=== PATIENT | male | born 1965 | race Caucasian/White ===

== ENCOUNTER 2019-04-21 21:57 | Inpatient (IN) ==
[2019-04-21] MEDS ORDERED: DUONEB (A & A) INH ONE (22:41)
--- NOTE | 2019-04-21 22:44 | EKG Report ---
Test Performed on : 04/21/2019 10:38:17 PM Test Reason : sob Blood Pressure : / mmHG Vent. Rate : 096 BPM Atrial Rate : 096 BPM P-R Int : 158 ms QRS Dur : 088 ms QT Int : 364 ms P-R-T Axes : 075 055 063 degrees QTc Int : 459 ms Normal sinus rhythm. Normal ECG When compared with ECG of 06-APR-2019 03:48, (Unconfirmed) No significant change was found Unconfirmed Result
[2019-04-21] MEDS ORDERED: NS 1,000 ML IV ONE ×2 (22:48→23:53)
[2019-04-21 23:03] LABS: BASO# 0.01 X1000 (0.0-0.2); BASO% 0.1 % (0.0-0.8); EOS# 0.01 X1000 (0.0-0.7); EOS% 0.1 % (0.0-10.0); HEMATOCRIT 58.1 % (42.0-52.0); HEMOGLOBIN 16.7 g/dL (14.0-18.0); IMM GRAN# 0.01 X1000 (0.0-0.04); IMM GRAN% 0.1 % (0.0-0.5); LYMPH# 0.66 X1000 (1.2-3.4); LYMPH% 9.2 % (20.5-51.1); MCH 28.5 PG (27-31); MCHC 28.7 g/dL (33-37); MCV 99.1 FL (81-99); MONO# 0.22 X1000 (0.11-0.59); MONO% 3.1 % (1.7-9.3); MPV 13.1 FL (7.4-10.4); NEUT% 87.4 % (42.2-75.2); PLT 224 X1000 (130-400); RBC 5.86 XMIL (4.7-6.1); RDW 13.4 % (11.5-14.5); WBC 7.21 X1000 (4.8-10.8)
[2019-04-21 23:23] LABS: INR 0.91; PROTIME 12.7 Seconds (11.0-16.0); PTT 29.4 Seconds (22.3-41.8)
[2019-04-21] MEDS ORDERED: NS 1,000 ML IV SCH (23:45)
[2019-04-21 23:49] LABS: ALBUMIN 4.3 g/dL (3.5-5.0); CREATININE 1.4 mg/dL (0.7-1.2); TOTAL BILIRUBIN 0.6 mg/dL (0.20-1.00); TOTAL PROTEIN 7.4 g/dL (6.3-8.3)
[2019-04-21 23:52] LABS: POTASSIUM 6.7 mmol/L (3.5-5.1)
[2019-04-21] MEDS ORDERED: HUMULIN R IV ONE (23:52)
[2019-04-21] MEDS ORDERED: HUMULIN R 100 UNIT in NS 99 ML IV ONE (23:53)
[2019-04-21] MEDS ORDERED: NS 100 ML ONE (23:58)
[2019-04-22 00:03] LABS: MAGNESIUM 2.5 mg/dL (1.5-2.7); PHOSPHORUS 4.3 mg/dL (2.7-4.5)
--- NOTE | 2019-04-22 00:06 | PROVIDER DOCUMENTATION ---
This chart was entered by Danyell Kidd Scribe, acting as scribe for Jt Stahl MD. HPI-Respiratory General - General Chief Complaint: Shortness of Breath Stated Complaint: SICK Time Seen by Provider: 04/21/19 22:20 Source: patient Allergies/Adverse Reactions: Patient Allergies Allergy/AdvReac Type Severity Reaction Status Date / Time shellfish derived Allergy HIVES Verified 04/21/19 22:16 Home Medications: Home Medication List Medication Instructions Recorded Confirmed Last Taken Type Cyclobenzaprine [Flexeril] 10 mg PO HS PRN PRN #10 tab 02/23/19 Unknown Rx Ibuprofen 800 mg PO Q8H PRN PRN #30 tab 02/23/19 Unknown Rx Methocarbamol [Robaxin-750] 750 mg PO BID PRN #20 tab 04/06/19 Unknown Rx - History of Present Illness-Resp Nature of Presenting Problem: 54 yom c/o sob, nausea, felt feverish, cough for 2-3 days. pt was seen recently at [facility] er and dx w/pneumonia. pt takes no rx regularly and has no pcp. pt smokes 1/2ppd. Onset/Duration: reports: 2 days ago, 3 days ago Timing: reports: still present Associated Symptoms: reports: cough, fever/chills (felt feverish), short of venu ath, other (nausea) Similar Symptoms Previously?: Yes (tx last wk at [facility], dx w/pneumonia ) Recently seen or treated by another doctor?: Yes Review of Systems - Adult - REVIEW OF SYSTEMS - ADULT Constitutional: reports: see HPI, fever (felt feverish). denies: chills, fatique, night sweats Eyes: reports: no symptoms reported Ears, Nose, Mouth & Throat: reports: no symptoms reported. denies: hoarseness, throat pain, throat swelling Cardiovascular: reports: no symptoms reported. denies: chest pain, orthopnea, palpitations Respiratory: reports: see HPI, cough, shortness of breath. denies: hemoptysis, pleurisy, wheezing Gastrointestinal: reports: see HPI, nausea. denies: abdominal pain, diarrhea, vomiting Genitourinary: reports: no symptoms reported Musculoskeletal: reports: no symptoms reported Integumentary: reports: no symptoms reported Neurological: reports: no symptoms reported Psychiatric: reports: no symptoms reported Endocrine: reports: no symptoms reported Hematologic/Lymphatic: reports: no symptoms reported Allergic/Immunologic: reports: no symptoms reported All Other Systems: Reviewed and Negative Past History - Adult - PAST MEDICAL HISTORY-ADULT Review of Records: reports: Old Records Reviewed, Nursing Assessment Review, Medications Reviewed, Social history reviewed & non-contributory. Major Childhood Illnesses: reports: denies history Cardiovascular: reports: denies history Respiratory: reports: denies history Gastrointestinal: reports: denies history Obstetrical/Gynecological: reports: denies history Genitourinary: reports: denies history Musculoskeletal: reports: other (DDD) Neurological: reports: denies history Psychiatric: reports: denies history Endocrine/Immune: reports: denies history Other Conditions: reports: denies history - PRIOR SURGERIES/PROCEDURES Surgical/Procedure History: reports: cholecystectomy - IMMUNIZATION STATUS Childhood Immunizations: See Nurse Assessment Flu Vaccine: See Nurse Assessment - FAMILY HISTORY Family History: other (DM mother) - SOCIAL HISTORY Smoking: cigarettes, less than 1 pack/day Provider spent 3-5 mins advising pt. on dangers of tobacco.: Discussed manners to quit use, and f/u contacts for add'l counseling. Substance Use: none/never Physical Exam-General - PHYSICAL EXAM-ADULT Initial Vital Signs Reviewed: Yes - CONSTITUTIONAL General Appearance: appears well, alert, no apparent distress - EYES Eyes: PERRL/EOMI, pink conjunctivae - HEAD, EARS, NOSE, MOUTH & THROAT HENMT: normocephalic/atraumatic, normal ENT inspection. negative: moist mucous membranes (dry mucous membranes) - NECK Neck: non-tender, full range of motion, supple, normal inspection - RESPIRATORY Respiratory: chest non-tender, lungs clear, no pleuratic chest pain, no respiratory distress, no accessory muscle use, decreased breath sounds. negative: normal breath sounds, accessory muscle use, rhonchi, wheezing - CARDIOVASCULAR Cardiovascular: normal peripheral pulses, regular rate, rhythm - GASTROINTESTINAL (ABDOMEN) Abdominal Exam: normal bowel sounds, non tender, soft - LYMPHATIC Lymphatic: no adenopathy - MUSCULOSKELETAL Back Exam: normal inspection, no CVA tenderness, no vertebral tenderness Extremity: normal range of motion, non-tender, normal inspection Peripheral Pulses: radial (R): 2+, radial (L): 2+ - SKIN Integumentary: normal color, normal turgor, warm/dry - NEUROLOGIC Neurologic: grossly normal, no motor/sensory deficits, other (can handler II-XII norm) - PSYCHIATRIC Psych/Mental Status: normal mood/affect, normal thought content, normal thought process, oriented x 3 Progress - PLAN OF CARE/RESULTS Progress/Plan/Lab Results: Vital Signs - 8 hr 04/21/19 22:12 04/21/19 23:02 Temperature 97.5 F L Pulse Rate 91 H 92 H Respiratory Rate 18 14 Blood Pressure 130/76 O2 Sat by Pulse Oximetry 95 95 Laboratory Results - last 24 hr 04/21/19 04/21/19 04/21/19 22:44 22:51 22:51 WBC 7.21 RBC 5.86 Hgb 16.7 Hct 58.1 H MCV 99.1 H MCH 28.5 MCHC 28.7 L RDW Std Deviation 13.4 Plt Count 224 MPV 13.1 H Immature Gran % (Auto) 0.1 Neut % (Auto) 87.4 H Lymph % (Auto) 9.2 L [place] % (Auto) 3.1 Eos % (Auto) 0.1 Baso % (Auto) 0.1 Immature Gran # (Auto) 0.01 Neut # (Auto) 6.30 Lymph # (Auto) 0.66 L [place] # (Auto) 0.22 Eos # (Auto) 0.01 Baso # (Auto) 0.01 PT INR PTT (Actin FS) Sodium 116 L* Potassium 6.7 H* Chloride 76 L Carbon Dioxide 19 L Anion Gap 21 BUN 28 H Creatinine 1.4 H Estimated GFR/1.73 m2 52 BUN/Creatinine Ratio 20 Glucose 1597 H* POC Glucose 500 H Calculated Osmolality 297 Calcium 10.0 Phosphorus Magnesium Total Bilirubin 0.60 AST 12 ALT 27 Alkaline Phosphatase 58 Creatine Kinase 35 Troponin T Lzm-W-Cpbjxklljbh Pept Total Protein 7.4 Albumin 4.3 Globulin 3.0 Albumin/Globulin Ratio 1.0 Acetone Level 04/21/19 04/21/19 04/21/19 22:51 22:51 22:51 WBC RBC Hgb Hct MCV MCH MCHC RDW Std Deviation Plt Count MPV Immature Gran % (Auto) Neut % (Auto) Lymph % (Auto) [place] % (Auto) Eos % (Auto) Baso % (Auto) Immature Gran # (Auto) Neut # (Auto) Lymph # (Auto) [place] # (Auto) Eos # (Auto) Baso # (Auto) PT 12.7 INR 0.91 PTT (Actin FS) 29.4 Sodium Potassium Chloride Carbon Dioxide Anion Gap BUN Creatinine Estimated GFR/1.73 m2 BUN/Creatinine Ratio Glucose POC Glucose Calculated Osmolality Calcium Phosphorus Magnesium Total Bilirubin AST ALT Alkaline Phosphatase Creatine Kinase Troponin T < 0.010 Jre-T-Ikxvjhziydf Pept 32 Total Protein Albumin Globulin Albumin/Globulin Ratio Acetone Level 04/21/19 04/21/19 22:51 22:51 WBC RBC Hgb Hct MCV MCH MCHC RDW Std Deviation Plt Count MPV Immature Gran % (Auto) Neut % (Auto) Lymph % (Auto) [place] % (Auto) Eos % (Auto) Baso % (Auto) Immature Gran # (Auto) Neut # (Auto) Lymph # (Auto) [place] # (Auto) Eos # (Auto) Baso # (Auto) PT INR PTT (Actin FS) Sodium Potassium Chloride Carbon Dioxide Anion Gap BUN Creatinine Estimated GFR/1.73 m2 BUN/Creatinine Ratio Glucose POC Glucose Calculated Osmolality Calcium Phosphorus 4.3 Magnesium 2.5 Total Bilirubin AST ALT Alkaline Phosphatase Creatine Kinase Troponin T Noi-G-Mwyyfwvtyvz Pept Total Protein Albumin Globulin Albumin/Globulin Ratio Acetone Level NEGATIVE Orders Category Date Time Status Cardiac Monitoring DIRECTED Care 04/21/19 22:20 Active FSBS [Finger Stick Blood Sugar (ED)] RTQ1H Care 04/21/19 22:47 Active Oxygen Therapy- ED Nursing DIRECTED Care 04/21/19 22:20 Active Saline Loc NOW Care 04/21/19 22:20 Active CHEST-2 VIEWS [RAD] Stat Exams 04/21/19 22:20 Taken ACETONE SERUM [CHEM] Stat Lab 04/21/19 22:51 Completed CBC WITH ELECTRONIC DIFF [HEME] Stat Lab 04/21/19 22:51 Completed CK PROFILE [SP CHEM] Stat Lab 04/21/19 22:51 Completed COMPREHENSIVE METABOLIC PANEL [CHEM] Stat Lab 04/21/19 22:51 Completed MAGNESIUM [CHEM] Stat Lab 04/21/19 22:51 Completed PHOSPHORUS [CHEM] Stat Lab 04/21/19 22:51 Completed PRO B-NATRIURETIC PEPTIDE Stat Lab 04/21/19 22:51 Completed PROTIME WITH INR [COAG] Stat Lab 04/21/19 22:51 Completed PTT [COAG] Stat Lab 04/21/19 22:51 Completed TROPONIN T Stat Lab 04/21/19 22:[address] W/POSS RFLX CULT [URINALYSIS] Stat Lab 04/21/19 22:55 Received URINE DRUG SCREEN PL Stat Lab 04/21/19 22:55 Received 0.9% Sodium Chloride Inj [Ns] 1,000 ml Med 04/21/19 23:45 Active IV 200 mls/hr 0.9% Sodium Chloride Inj [Ns] 1,000 ml Med 04/21/19 22:48 Discontinued IV 999 mls/hr 0.9% Sodium Chloride Inj [Ns] 1,000 ml Med 04/21/19 23:53 Active IV 999 mls/hr 0.9% Sodium Chloride Inj [Ns] 100 ml Med 04/21/19 23:58 Discontinued .ROUTE As directed 0.9% Sodium Chloride Inj [Ns] 99 ml Med 04/21/19 23:53 Discontinued Insulin Human Regular [Humulin R] 100 unit IV Per Protocol mls/hr Albuterol 2.5MG/Ipratrop 0.5MG [Duoneb (A & A)] Med 04/21/19 22:41 Discontinued 3 ml INH NOW ONE Insulin Human Regular [Humulin R] Med 04/21/19 23:52 Discontinued 10 unit IV NOW ONE Insulin Lispro [Humalog] Med 04/21/19 23:53 Ordered See Protocol SUBQ 0700,1100,1600,2100 PRN Aerosol Treatments Routine Oth 04/21/19 22:42 Completed Aerosol Treatments Stat Oth 04/21/19 22:42 Completed CP/SOB/Palp >45 yrs of Age Stat Oth 04/21/19 22:20 Ordered EKG [EKG] Stat Ther 04/21/19 22:19 Draft Result Diagrams: 04/21/19 22:51 04/21/19 22:51 - REASSESSMENT Reassessment #1 Time Reassessed: 00:04 Status: other (pt has family hx of DM: mother) - EKG 1 Time of EKG reading by physician:: 22:39 EKG Read and Signed by:: Jt Stahl EKG Interpretation (*Must complete 3 of following elements*): Normal Rate: 96 Rhythm: NSR [place]: normal QRS: normal [place] Interval: normal ST Wave: normal - XRAY 1 XRAY Study: Chest Impression: Normal - CONSULTS/PCP/HOSPITALIST Notification #1 *Consult/PCP/Hospitalist*: Dr. Hart Time Discussed: 23:56 Consult Disposition: Admit Departure - Departure Date of Disposition Decision: 04/21/19 Time of Disposition Decision: 23:00 DIAGNOSIS: DKA (diabetic ketoacidoses) Disposition: ADMITTED INPATIENT 09 Certified Medical Emergency: Emergent Condition: Serious Referrals and Follow-Ups: None,PCP [Primary Care Provider] - - Critical Care Note This patient required my direct & personal management of CC.: No Attestation - Physician/ ERENDIRA Attestation Patient care was provided by Advanced Practice Provider:: No The physician spent face to face time with patient:: Yes Advanced Practice Provider documentation review:: Supervising physician onsite and consulted in the evaluation and care of this patient. The physician did have a face to face encounter with the patient. This chart was documented by the indicated scribe, (Danyell Kidd Scribe) and accurately reflects the services I performed and decisions made by me, Jt Stahl MD, as attested by the provider's signature.
[2019-04-22 00:08] LABS: URINE SOURCE CLEAN CATCH
[2019-04-22 00:09] LABS: BILIRUBIN URINE NEGATIVE (NEGATIVE); BLOOD URINE NEGATIVE (NEGATIVE); CLARITY CLEAR (CLEAR); COLOR YELLOW; KETONE URINE 2+(Moderate) mg/dL (NEGATIVE); LEUKOCYTES URINE NEGATIVE (NEGATIVE); NITRITE URINE NEGATIVE (NEGATIVE); PH URINE 6.5; PROTEIN URINE TRACE mg/dL (NEGATIVE); UROBILINOGEN URINE NORMAL
[2019-04-22 00:10] LABS: URINE BACTERIA NEGATIVE /HFP; URINE EPITHELIAL CELLS <10 /HPF (<10); URINE RBC <10 /HPF (<10); URINE WBC <10 /HPF (<10)
[2019-04-22] MEDS ORDERED: NS 1,000 ML IV ONE (00:13)
[2019-04-22] MEDS ORDERED: ZOFRAN IV PRN ×2 (00:13→08:32)
[2019-04-22] MEDS ORDERED: MAGNESIUM SULFATE 2 GM/S.W.I. 2 GM/50 ML IVPB IV PRN (00:13)
[2019-04-22] MEDS ORDERED: D50W SYRINGE IV PRN (00:13)
[2019-04-22] MEDS ORDERED: SODIUM PHOSPHATE 30 MMOL in D5W 250 ML IV PRN (00:13)
[2019-04-22] MEDS ORDERED: HUMULIN R 100 UNIT in NS 100 ML IV SCH (00:15)
[2019-04-22 00:16] LABS: UR AMPHETAMINES QUAL NONE DETECTED (NONE DETECT); UR BARBITUATES QUAL NONE DETECTED (NONE DETECT); UR BENZODIAZEPIN QUAL NONE DETECTED (NONE DETECT); UR CANNABINOIDS QUAL NONE DETECTED (NONE DETECT); UR COCAINE QUAL NONE DETECTED (NONE DETECT); UR METHADONE QUAL NONE DETECTED (NONE DETECT); UR METHAMPHETAMINE QUAL NONE DETECTED (NONE DETECT); UR OPIATES QUAL NONE DETECTED (NONE DETECT); UR OXYCODONE QUAL NONE DETECTED (NONE DETECT); UR PCP QUAL NONE DETECTED (NONE DETECT); UR PROPOXYPHENE QUAL NONE DETECTED (NONE DETECT); UR TCA QUAL NONE DETECTED (NONE DETECT)
[2019-04-22 04:33] LABS: AGAP 16; BUN 23 mg/dL (8-22); CALCIUM 9.8 mg/dL (8.8-10.2); CHLORIDE 98 mmol/L (98-107); COSMO 307; CREATININE 0.9 mg/dL (0.7-1.2); ESTIMATED GFR > 60; MAGNESIUM 2.4 mg/dL (1.5-2.7); PHOSPHORUS 2.2 mg/dL (2.7-4.5); POTASSIUM 4.5 mmol/L (3.5-5.1); SODIUM 135 mmol/L (136-145); TCO2 21 mmol/L (25-35)
[2019-04-22 04:34] LABS: GLUCOSE 688 mg/dL (70-104)
--- NOTE | 2019-04-22 05:55 | Diag Imaging Result Doc PS360 ---
EXAM: CHEST-2 VIEWS HISTORY: sob TECHNIQUE: Chest two views COMPARISON: 03/27/2019 FINDINGS: The lungs are well expanded. The heart is not enlarged. The vessels are not distended. There are no infiltrates. No pleural effusions. IMPRESSION: No acute abnormality. Electronically signed by Brien Granados 04/22/2019 5:52 AM
[2019-04-22] MEDS ORDERED: HUMALOG (PARKWAY) SUBQ SCH (07:00)
[2019-04-22 07:33] LABS: BE 0.5 mmoll (-3.0-3.0); BLOOD TYPE ARTERIAL; HCO3-(ACT) 25.1 mmoll (20.0-26.0); METHB 1.2 % (0.0-1.5); O2(CT) 21.5 mL/dL (15.0-23.0); O2HB 92.7 % (95.0-99.0); PCO2(98.6) 41 mmHg (35-45); PO2(98.6) 70 mmHg (60-100); SAMPLE BLOOD; SAO2 96.3 % (95.0-100.0); THB 16.5 g/dL (11.5-17.4)
[2019-04-22 07:43] LABS: MODALITY ROOM AIR
[2019-04-22 07:44] LABS: ALLEN TEST YES
[2019-04-22] MEDS ORDERED: NS 1,000 ML IV SCH (08:29)
[2019-04-22 10:02] LABS: HEMOGLOBIN A1C 13.8 % (4.8-6.0)
[2019-04-22 10:02] LABS: ESTIMATED GFR > 60
[2019-04-22 10:03] LABS: AGAP 18; BUN 20 mg/dL (8-22); CALCIUM 9.7 mg/dL (8.8-10.2); CHLORIDE 103 mmol/L (98-107); COSMO 299; CREATININE 0.8 mg/dL (0.7-1.2); PHOSPHORUS 2.7 mg/dL (2.7-4.5); POTASSIUM 4.3 mmol/L (3.5-5.1); SODIUM 140 mmol/L (136-145); TCO2 19 mmol/L (25-35)
[2019-04-22 10:09] LABS: GLUCOSE 409 mg/dL (70-104)
[2019-04-22] MEDS ORDERED: HUMALOG (PARKWAY) SUBQ ONE (10:21)
[2019-04-22] MEDS ORDERED: LANTUS INSULIN SUBQ ONE (10:40)
[2019-04-22] MEDS: NICODERM PATCH TD SCH (10:53)
[2019-04-22] MEDS ORDERED: HUMULIN R (PARKWAY) SUBQ SCH (11:00)
[2019-04-22] MEDS: HUMALOG (PARKWAY) SUBQ SCH ×3 (12:31→20:33)
--- NOTE | 2019-04-22 13:14 | HISTORY AND PHYSICAL ---
PRIMARY CARE PHYSICIAN: None. CHIEF COMPLAINT: Nausea, fever and cough for 2 to 3 days. HISTORY OF PRESENT ILLNESS: Mr. Ramirez is a 54-year-old who states that he had been feeling sick for several days. He actually states that he came to the ER a few weeks ago, and was diagnosed with pneumonia. The patient states he smokes a half a pack of cigarettes a day, and has for greater than 10 years. He states he felt like he had the flu. He has been feeling bad for the past couple of months. He actually quit working because he was feeling so bad. 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 The patient describes his symptoms as fatigue, nausea, shortness of breath, cough and feverish. Denies any symptoms with his bowels. Denies any abdominal pain, and just states he had nausea. Denies any blood in his stool, and states he did have some vomiting, but denies any blood in the vomit. Denying any nausea at this time, and denies any fever at this time. When the patient presented to the ER, laboratory findings did show the patient to be in DKA. Sodium level was 116, potassium 6.7, glucose was 1597, creatinine 1.4, BUN 28, anion gap 21, pH of 7.4, pCO2 of 41, and bicarb of 25. Chest x-ray, which showed to be negative. The patient is awake, alert, and oriented. Patient is not known to be a diabetic. However, patient states his mother was diabetic. The patient is admitted to the ICU, and was placed on insulin drip, and given 4 L of normal saline in the ER. PAST MEDICAL HISTORY: No known past medical history. PAST SURGICAL HISTORY: Gallbladder removal 5-7 years ago in [place]. FAMILY HISTORY: Mother has diabetes. SOCIAL HISTORY: The patient lives with his . He states he smokes a pack to a half pack of cigarettes a day, and has for greater than 10 years. He denies any alcohol or illicit drug use. ALLERGIES: Shellfish. MEDICATIONS: The patient does not take any medications. LABORATORY FINDINGS: White blood cell count 7.21, red blood cell count 5.86, hemoglobin 16.7, hematocrit 58.1, MCV 99.1, MCH 28.5, MCHC 28.7, RDW is 13.4, and platelet counts 224. PT is 12.7, INR is 0.91, PTT is 29.4. Blood gas pH is 7.4, pCO2 is 41, PO2 is 70, HC03 25.1. Oxyhemoglobin is 92.7, carboxyhemoglobin is 2.50. O2 saturation is 96.3. Sodium is 116, potassium is 6.7, carbon dioxide is 19, chloride is 76. Anion gap is 21, BUN is 28, creatinine is 1.4. Estimated GFR is 52. Glucose is 1597. Calcium is 10, magnesium is 2.5, total bilirubin is 0.6. AST is 12, ALT is 27, alkaline phosphatase is 58, creatine kinase is 35. Troponin is less than 0.01. ProBNP is 32. Laboratory findings later on were sodium of 140, potassium 4.3, chloride of 103, carbon dioxide 19, anion gap of 18, BUN of 20, creatinine 0.8, and estimated GFR of greater than 60. Glucose of 409, magnesium of 2.3, and phosphorus of 2.7. REVIEW OF SYSTEMS: A 12 point review of systems has been obtained. All are negative except what is stated above in HPI. PHYSICAL EXAMINATION: VITAL SIGNS: Temperature 97.5 degrees, pulse rate 78, respiratory rate 20, blood pressure is 108/71, and O2 saturation is 97 on room air. Weight is 183 pounds. Height is 5 feet 6 inches. GENERAL: This is a 54-year-old male. He is lying in the bed. He is in no acute distress. He is well nourished and well developed. HEENT: Atraumatic, normocephalic. Pupils equal, round, and reactive to light. Sclerae is anicteric. Mucous membranes are dry. NECK: Supple. No lymphadenopathy. Trachea is midline. No JVD. No thyromegaly. No bruits. CARDIOVASCULAR: Regular rate and rhythm. No murmurs, no gallops. No rubs. RESPIRATORY: Lung sounds are coarse. Respirations are nonlabored with no accessory muscle usage GI:Soft, nontender, nondistended. Bowel sounds are present x4. NEUROLOGIC: Cranial nerves 2-12 are intact. The patient is awake, alert, and oriented. MUSCULOSKELETAL: Full distal strength noted. No abnormalities. No deformities. EXTREMITIES: No clubbing, no cyanosis, no edema. DP and PT pulses are present and palpable. SKIN: Warm, dry, and intact. No rashes. No bruises. No diaphoresis. ASSESSMENT AND PLAN: 1. DKA. We admitted this patient to the ICU unit. He was on an insulin drip all night in the ER. He was given 4 L in the ER. The patient's blood sugars have corrected. He is now around 300. We have stopped the insulin drip. We placed him on sliding scale insulin. We are going to slowly start him on a diet. Started him on clear liquids this morning. And we are going to advance his diet as tolerated. We are going to start him on a sliding scale of Humalog low- dose. I am going to start him on some Lantus 10 units subcutaneous daily. Check some labs in the morning, and check A1c on this patient. Keep him on IV fluids in the ICU. Monitor him closely. 2. Possible COPD. The patient does have some very coarse lung sounds. The patient is a smoker. He did have an episode where he came to the ER, and stated he thought he had some pneumonia. The patient does smoke about half a pack to a pack a day. I am going to start him on some breathing treatments and see if this helps. I suspect he probably does have some COPD. I did discuss with him about stopping smoking. His chest x-ray was clear. 3. Acute Kidney Injury. Likely this will resolve when his acidosis resolves and his dehydration. 4. Hyperkalemia. This has resolved with hydration. 5. Tobacco dependency. Like I said, I have discussed smoking cessation with the patient. I have ordered him a nicotine patch. 6. Deep venous thrombosis prophylaxis. We will place SCD's on the patient. 7. Gastrointestinal prophylaxis. I will start him on Prilosec daily. We have admitted this patient in the ICU unit. We will be checking his fingersticks before meals and at bedtime. We are going to start him on a clear liquid diet and advance as tolerated. We are going to keep him on IV fluids for hydration, and start him on some Lantus daily. All other further treatment pending hospital course and lab data. Dictated by DRU Moseley for Joel Hart MD cc: Joel Hart MD [facility]
[2019-04-22] MEDS: DUONEB (A & A) INH SCH ×2 (15:44→21:02)
[2019-04-22] MEDS: NS 1,000 ML IV SCH ×2 (16:54→20:35)
[2019-04-22] MEDS: MYCOSTATIN SUSP PO SCH (20:34)
[2019-04-22] MEDS ORDERED: LANTUS INSULIN SUBQ SCH (21:00)
--- NOTE | 2019-04-23 02:57 | HISTORY AND PHYSICAL ---
ADDENDUM: The patient seen and examined by myself. Full note dictated and discussed with nurse practitioner. The patient presented to the hospital after having been feeling bad for a couple of weeks. After further discussion he notes he has not really felt normal for a few months. His blood sugars were markedly elevated at 1597, glucose of 116, and potassium 6.7. The patient was given fluid boluses as his blood sugar improved, his sodium did as well. However, he actually calculated out to a fairly normal sodium level on admission. Potassium is back to normal. The patient is tolerating blood sugars in 400s and 500s. I doubt that he actually truly had diabetic ketoacidosis, he was acidotic given the severity of his blood sugar and probably more lactic acidosis. He is tolerating a diet, he is doing well. We have admitted him the hospital. He is going to continue on sliding scale insulin. We will stop his insulin drip for the moment. The patient has not been on any medications. He has newly diagnosed diabetes. Unfortunately he has no insurance, we will need to consider generic medications if at all possible on discharge. cc: Joel Hart MD
[2019-04-23] MEDS: NS 1,000 ML IV SCH ×4 (03:00→15:20)
[2019-04-23] MEDS: DUONEB (A & A) INH SCH ×4 (03:12→20:02)
[2019-04-23] MEDS: PRILOSEC PO SCH (06:05)
[2019-04-23] MEDS: HUMALOG (PARKWAY) SUBQ SCH ×4 (06:08→20:48)
[2019-04-23 07:02] LABS: AGAP 12; ALBUMIN 3.1 g/dL (3.5-5.0); ALKALINE PHOSPHATASE 37 U/L (32-122); BUN 13 mg/dL (8-22); CALCIUM 8.5 mg/dL (8.8-10.2); CHLORIDE 102 mmol/L (98-107); CHOLESTEROL 188 mg/dL (0-200); COSMO 282; CREATININE 0.6 mg/dL (0.7-1.2); ESTIMATED GFR > 60; GLUCOSE 338 mg/dL (70-104); GOT 15 U/L (10-34); GPT 18 U/L (10-44); HDL 27 mg/dL (35-55); LDL 108 mg/dL; SODIUM 134 mmol/L (136-145); TCO2 20 mmol/L (25-35); TOTAL IRON 93 ug/dL (53-167); TOTAL PROTEIN 5.3 g/dL (6.3-8.3); TRIGLYCERIDES 264 mg/dL (39-160); VLDL 53 mg/dL
[2019-04-23 07:17] LABS: FREE T4 0.88 ng/dL (0.93-1.70); TSH 1.41 uIUmL (0.27-4.20)
[2019-04-23 07:49] LABS: BASO# 0.01 X1000 (0.0-0.2); BASO% 0.1 % (0.0-0.8); EOS# 0.09 X1000 (0.0-0.7); EOS% 1.1 % (0.0-10.0); HEMATOCRIT 40.9 % (42.0-52.0); HEMOGLOBIN 13.3 g/dL (14.0-18.0); IMM GRAN# 0.02 X1000 (0.0-0.04); IMM GRAN% 0.2 % (0.0-0.5); LYMPH# 1.73 X1000 (1.2-3.4); LYMPH% 20.4 % (20.5-51.1); MCH 28.4 PG (27-31); MCHC 32.5 g/dL (33-37); MCV 87.4 FL (81-99); MONO# 0.34 X1000 (0.11-0.59); MPV 11.7 FL (7.4-10.4); NEUT# 6.28 X1000 (1.4-6.5); NEUT% 74.2 % (42.2-75.2); PLT 171 X1000 (130-400); RBC 4.68 XMIL (4.7-6.1); RDW 12.6 % (11.5-14.5); WBC 8.47 X1000 (4.8-10.8)
[2019-04-23] MEDS: MYCOSTATIN SUSP PO SCH ×4 (08:54→20:49)
[2019-04-23] MEDS: NICODERM PATCH TD SCH (08:54)
[2019-04-23] MEDS ORDERED: LANTUS INSULIN SUBQ SCH (09:00)
[2019-04-23] MEDS ORDERED: LANTUS INSULIN SUBQ ONE (14:45)
--- NOTE | 2019-04-23 15:35 | PROGRESS NOTE ---
DATE: 04/23/2019 SUBJECTIVE: Patient has no major complaints. OBJECTIVE: Blood pressure is 128/78, heart rate of 93, respiratory rate 20, temperature 98.6 degrees, 100% on room air.Cardiovascular: Regular rate and rhythm. Pulmonary: Bilateral breath sounds clear to auscultation. GI: Soft, nontender, nondistended. Bowel sounds are positive. LABORATORY DATA: White count 8, H and H 13 and 40, platelets of 171,000. Sodium 134. Sugar down to 338. A1c of 13, was 13.6 yesterday. Folate is low and free T4 is mildly decreased in any case. PROBLEM LIST: 1. He was not quite diabetic ketoacidosis, but hyperosmolar nonketotic, but he did have a gap when he came in so, at least partially. In any case, he is improved control, but still not controlled. I think he will have to have insulin. I have increased his Lantus. We have initiated metformin and we will continue to follow. 2. Chronic obstructive pulmonary disease seems to be doing okay from that standpoint. No breathing difficulties at this point. 3. Acute kidney injury that has resolved with hydration and correction of his hyperglycemia. DISPOSITION: I think he is probably stable to go floor, possibly home tomorrow. He will need social service liaison to assist with his medications. cc: Josue Moore MD
[2019-04-23] MEDS ORDERED: THIAMINE 100 MG, FOLIC ACID 1 MG, M.V.I.-12 10 ML in NS 500 ML IV SCH (16:00)
[2019-04-23] MEDS: GLUCOPHAGE PO SCH (16:52)
[2019-04-23] MEDS ORDERED: HUMALOG (PARKWAY) IV ONE (19:05)
[2019-04-24] MEDS: DUONEB (A & A) INH SCH ×4 (03:13→20:00)
[2019-04-24] MEDS: NS 1,000 ML IV SCH ×4 (04:30→23:27)
[2019-04-24 04:41] LABS: BASO# 0.02 X1000 (0.0-0.2); BASO% 0.2 % (0.0-0.8); EOS# 0.14 X1000 (0.0-0.7); EOS% 1.5 % (0.0-10.0); HEMOGLOBIN 13.4 g/dL (14.0-18.0); IMM GRAN# 0.03 X1000 (0.0-0.04); IMM GRAN% 0.3 % (0.0-0.5); LYMPH# 2.31 X1000 (1.2-3.4); MCH 28.6 PG (27-31); MCHC 32.7 g/dL (33-37); MCV 87.6 FL (81-99); MONO# 0.49 X1000 (0.11-0.59); MONO% 5.3 % (1.7-9.3); NEUT# 6.26 X1000 (1.4-6.5); NEUT% 67.7 % (42.2-75.2); PLT 170 X1000 (130-400); RBC 4.68 XMIL (4.7-6.1); RDW 12.6 % (11.5-14.5); WBC 9.25 X1000 (4.8-10.8)
[2019-04-24 05:05] LABS: AGAP 12; BUN 10 mg/dL (8-22); CALCIUM 8.7 mg/dL (8.8-10.2); CHLORIDE 103 mmol/L (98-107); COSMO 281; CREATININE 0.6 mg/dL (0.7-1.2); ESTIMATED GFR > 60; GLUCOSE 237 mg/dL (70-104); MAGNESIUM 1.7 mg/dL (1.5-2.7); POTASSIUM 3.2 mmol/L (3.5-5.1); SODIUM 137 mmol/L (136-145); TCO2 22 mmol/L (25-35)
[2019-04-24] MEDS: HUMALOG (PARKWAY) SUBQ SCH ×4 (06:21→23:27)
[2019-04-24] MEDS: PRILOSEC PO SCH (06:23)
[2019-04-24] MEDS: MYCOSTATIN SUSP PO SCH ×4 (08:11→21:50)
[2019-04-24] MEDS: GLUCOPHAGE PO SCH ×2 (08:11→16:19)
[2019-04-24] MEDS: NICODERM PATCH TD SCH (08:11)
[2019-04-24] MEDS ORDERED: LANTUS INSULIN SUBQ SCH ×2 (09:00)
[2019-04-24] MEDS ORDERED: KLOR-CON PO ONE (11:04)
[2019-04-24] MEDS ORDERED: LANTUS INSULIN SUBQ ONE (14:29)
--- NOTE | 2019-04-24 15:06 | Diag Imaging Result Doc PS360 ---
EXAM: SHOULDER-RIGHT HISTORY: shoulder pain TECHNIQUE: Two views COMPARISON: None. FINDINGS: No fracture. No dislocation. Mild narrowing at the acromioclavicular joint. IMPRESSION: Mild acromioclavicular arthritis Electronically signed by Brien Granados 04/24/2019 3:04 PM
[2019-04-25] MEDS: DUONEB (A & A) INH SCH ×2 (03:08→08:00)
[2019-04-25] MEDS: HUMALOG (PARKWAY) SUBQ SCH ×2 (06:29→11:46)
[2019-04-25] MEDS: NS 1,000 ML IV SCH (06:30)
[2019-04-25] MEDS: PRILOSEC PO SCH (06:30)
[2019-04-25] MEDS: GLUCOPHAGE PO SCH (08:45)
[2019-04-25] MEDS: MYCOSTATIN SUSP PO SCH ×2 (08:45→12:39)
[2019-04-25] MEDS: NICODERM PATCH TD SCH (08:45)
[2019-04-25] MEDS ORDERED: LANTUS INSULIN SUBQ SCH (09:00)
[2019-04-25 11:25] VITALS: BP 153/99
--- NOTE | 2019-04-25 20:14 | DISCHARGE SUMMARY ---
ADMISSION DATE: 04/22/2019 DISCHARGE DATE: 04/25/2019 PRIMARY CARE PHYSICIAN: None. ADMISSION DIAGNOSES: 1. Diabetic ketoacidosis. 2. Possible chronic obstructive pulmonary disease. 3. Acute kidney injury secondary to the diabetic ketoacidosis. 4. Hyperkalemia. 5. Tobacco dependency. DISCHARGE DIAGNOSES: 1. Diabetic ketoacidosis, resolved. 2. Possible chronic obstructive pulmonary disease. 3. Acute kidney injury, resolved. 4. Hyperkalemia, resolved 5. Tobacco dependency. 6. Diabetes type 2, new onset with hyperglycemia and hemoglobin A1c of 13.8. SUMMARY OF FINDINGS: This is a 54-year-old male who states he had been feeling sick for several days, came to the emergency room a few weeks prior and was diagnosed with pneumonia. States he smokes a half a pack of cigarettes a day and has done so for greater than 10 years, and that he felt like had the flu. Had been feeling fatigue, nausea, shortness of breath, cough, fever. When he came to the emergency room, his sodium level was 116. His blood glucose was 1597. His chest x- ray was negative. Prior to this he was not known to be diabetic, but did state that his mother was diabetic. His hemoglobin A1c was 13.8. He was admitted to the intensive care unit and placed on an insulin drip initially and given 4 liters of fluid in the emergency room. Blood sugars were corrected, and the insulin drip was stopped per the protocol. His electrolytes all returned to normal. He was placed on metformin 500 mg p.o. b.i.d. and Lantus 40 units subcutaneously daily. His blood sugar today was 179. He states he is feeling better. We did do a shoulder x-ray on 04/24/2019 on the right that showed mild acromioclavicular arthritis, and it is now felt that he can safely be discharged home. DISCHARGE MEDICATIONS: 1. Prescription for Glucophage 500 mg p.o. b.i.d., #60 with 1 refill. 2. Blood sugar monitor. 3. Blood sugar test strips. 4. Alcohol pads. 5. Blood glucose meter. 6. Prescription for Humulin-N 35 units subcutaneously b.i.d. and Humulin-R 15 units subcutaneously b.i.d. FOLLOWUP: He is going to need to obtain a primary care physician. Will give him the physician referral line to follow up in the next 1-2 weeks. The patient verbalized understanding of all discharge instructions. Time spent for discharge: 35 minutes. Dictated by DRU Cervantes for Josue Moore MD cc: DRU Cervantes MD
== END 2019-04-25 13:30 | disposition home or self-care (01) | DRG 638 ==
LOC: P.ED 21:57 → SUATTDRO 04-22 00:34 → P.EDIPHOLD 04-22 00:34 → P.ICU 04-22 07:29 → P.MEDSURG 04-24 18:15
PROVIDERS: ATTEND Internal Medicine